=== PATIENT | female | born 1955 | race Caucasian/White ===

== ENCOUNTER 2021-07-26 05:29 | Outpatient (CLI) | payer MEDICARE ==
[~2021-07-26] VITALS: Ht 157.5 cm; Wt 56.8 kg
== END 2021-07-26 17:28 ==
LOC: PREOP 05:29
PROVIDERS: ATTEND Specialist
DX: Z01.818 Encounter for other preprocedural examination (principal)

== ENCOUNTER 2021-07-29 06:16 | Day surgery (SDC) | payer MEDICARE ==
[~2021-07-29] VITALS: Ht 157.5 cm; Wt 56.8 kg
[2021-07-29] MEDS ORDERED: TIMOLOL MALEATE 0.5% 5 ML (TIMOPTIC) BTL OU PRN (06:30)
[2021-07-29] MEDS ORDERED: POVIDONE (BETADINE) OPHTH SOLN 5% 30 ML OP ONE (06:30)
[2021-07-29] MEDS ORDERED: LIDOCAINE PF 1% 2 ML VIAL IR PRN (06:30)
[2021-07-29] MEDS ORDERED: MOXIFLOXACIN OPHTH SOLN 5 MG/ML 0.3 ML SYRINGE OP ONE (06:30)
[2021-07-29] MEDS: TETRACAINE 0.5% OPHTH SOLN 4 ML BTL (SINGLE DOSE ONLY) OU PRN ×4 (06:34→06:53)
[2021-07-29] MEDS: PHENYLEPHRINE 10% OPHTH (NEO-SYN) 5 ML BTL OU SCH ×3 (06:41→06:53)
[2021-07-29] MEDS: TROPICAMIDE 1% OPH SOLN (MYDRIACYL) 15 ML BTL OP SCH ×3 (06:41→06:53)
[2021-07-29 06:45] VITALS: BP 121/65
--- NOTE | 2021-07-29 07:02 | Ophthalmologist Pre-Op Note ---
Pre-Operative Progress Note H&P Reviewed The H&P was reviewed, patient examined and no changes noted. Date H&P Reviewed: Jul 29, 2021 Time H&P Reviewed: 07:02 Pre-Op Dx Cataract, Right Eye REYNOLD PELAEZ MD Jul 29, 2021 07:02
[2021-07-29] MEDS ORDERED: MIDAZOLAM 2 MG/2 ML (VERSED) VIAL ONE (07:06)
[2021-07-29] MEDS ORDERED: acetaZOLAMIDE ER 500 MG CAP (DIAMOX SEQUELS) PO ONE (07:30)
--- NOTE | 2021-07-29 07:31 | Ophthalmology Operative Report ---
Cataract removal/placement IOL PREOPERATIVE DIAGNOSIS: Cataract Right Eye POSTOPERATIVE DIAGNOSIS: Cataract Right Eye PROCEDURE: Cataract removal and placement of posterior chamber implant, right eye SURGEON: Chris Pelaez ANESTHESIA: Topical with sedation COMPLICATIONS: None ESTIMATED BLOOD LOSS: Minimal DESCRIPTION OF PROCEDURE: After proper informed consent was obtained, the patient, a 65 female, was taken to the Operating Room and the right eye was anesthetized with tetracaine. The right eye was then prepped and draped in the usual manner. A wire lid speculum was placed. A paracentesis was made at the left hand position. Preservative free lidocaine was injected into the anterior chamber followed by viscoelastic. A clear corneal incision was made in the temporal position. A capsulorrhexis was preformed and the central nuclear and cortical material were removed. The posterior capsule was polished and Raymond 22.5 AU00T0 IOL was placed into the capsular bag. The residual viscoelastic was aspirated and balanced saline solution was injected into the anterior chamber. Moxifloxacin was injected into the anterior chamber. The wound was checked and found to be water tight. The patient tolerated the procedure well without complications. CHRIS PELAEZ MD Jul 29, 2021 07:31
[2021-07-29 07:40] VITALS: BP 138/72
--- NOTE | 2021-07-29 12:43 | Anesthesia-General Post-Op ---
MAC Patient Condition Mental Status/LOC: Same as Preop Cardiovascular: Satisfactory Nausea/Vomiting: Absent Respiratory: Satisfactory Pain: Controlled Complications: Absent Post Op Complications Complications None Follow Up Care/Instructions Patient Instructions None needed. Anesthesiology Discharge Order Discharge Order Patient is doing well, no complaints, stable vital signs, no apparent adverse anesthesia problems. No complications reported per nursing. VERN JACK CRNA Jul 29, 2021 12:43
== END 2021-07-29 07:40 | disposition home or self-care (01) ==
LOC: SDC 06:16
PROVIDERS: ATTEND Specialist
DX: H25.9 Unspecified age-related cataract (principal)
CPT/HCPCS: 66984; V2632

== ENCOUNTER → 2022-02-03 | Outpatient (CLI) | payer MEDICARE ==
--- NOTE | 2022-02-03 15:12 | Diagnostic Imaging Report ---
Indication: Routine screening. No prior mammograms are available for comparison. 2-D and 3-D bilateral screening mammography was performed with CAD. Both breasts are heterogeneously dense, limiting the sensitivity of mammography. No mass or malignant-appearing microcalcifications are seen. Axillae are unremarkable. IMPRESSION: BI-RADS Category 1 No mammographic features suspicious for malignancy are identified. ACR BI-RADS Category 1: Negative. Result letter will be mailed to the patient. Note: At least 10% of breast cancer is not imaged by mammography. Dictated by: Dictated on workstation # [id number]
== END ==
LOC: RAD 09:45
PROVIDERS: ATTEND Family Medicine
DX: Z12.31 Encounter for screening mammogram for malignant neoplasm of breast (principal)
CPT/HCPCS: 77063; 77067